=== PATIENT | male | born 1965 | race Caucasian/White ===

== ENCOUNTER 2023-12-21 11:59 | Outpatient (CLI) | payer OTHER ==
[2023-12-21 13:40] LABS: Hematocrit 38.8 % (38.8-50.0); Hemoglobin 14.1 g/dL (13.5-17.5); Mean Corpuscular HGB CONC 36.3 g/dL (32.0-36.0); Mean Corpuscular Hemoglobin 32.8 pg (27.0-33.0); Mean Corpuscular Volume 90.2 fL (81.2-95.1); Mean Platelet Volume 9.6 fL (7.4-10.4); Platelet Count 187 10x3/uL (150-450); RBC Distribution Width 12.7 % (11.5-14.5); White Blood Cell (WBC) Count 5.2 10x3/uL (3.5-10.5)
[2023-12-21 14:26] LABS: Anion Gap 16 mmol/L (10-20); BUN (Urea Nitrogen) 18 mg/dL (8.4-25.7); Calc. Creatinine Clearance 0 mL/min (70-130); Calcium 9.9 mg/dL (7.8-10.44); Carbon Dioxide 23 mmol/L (22-29); Chloride 101 mmol/L (98-107); Estimated GFR 93; Glucose 161 mg/dL (70-105); Potassium 4.3 mmol/L (3.5-5.1); Sodium 136 mmol/L (136-145)
== END 2023-12-21 12:00 | disposition home or self-care (01) ==
LOC: LABBT 11:59
PROVIDERS: ATTEND Neurological Surgery
DX: Z01.818 Encounter for other preprocedural examination (principal); M54.16 Radiculopathy, lumbar region
CPT/HCPCS: 80048; 85027; 93005; 93010

== ENCOUNTER 2023-12-25 06:08 | Day surgery (SDC) | payer OTHER ==
[2023-12-21 12:51] VITALS: BMI 27.3
[2023-12-25] MEDS ORDERED: Sodium Chloride 0.9% 100 ML ONE ×2 (07:14→13:27)
[2023-12-25] MEDS ORDERED: CEFAZOLIN 2 GM VIAL ONE ×2 (07:14→13:27)
[2023-12-25] MEDS ORDERED: Rocuronium Bromide 10 MG/ML (10ML VIAL) ONE (08:01)
[2023-12-25] MEDS ORDERED: fentaNYL PF 100 MCG/2 ML SYRINGE ONE ×2 (08:01→11:13)
[2023-12-25] MEDS ORDERED: PROPOFOL 20 ML ONE (08:01)
[2023-12-25] MEDS ORDERED: Lidocaine 1% PF 5 ML VIAL ONE (08:01)
[2023-12-25] MEDS ORDERED: Bupivacaine PF 0.5% 30 ML VIAL ONE (08:46)
[2023-12-25] MEDS ORDERED: EPINEPHrine 1 MG/ML VIAL ONE (08:46)
[2023-12-25] MEDS ORDERED: Thrombin 5000 UNITS/5 ML VIAL ONE (08:46)
[2023-12-25] MEDS ORDERED: Midazolam HCl 2 mg/2 ml Vial ONE (09:38)
[2023-12-25] MEDS ORDERED: Dexmedetomidine 200 MCG/2 ML VIAL ONE (09:41)
[2023-12-25] MEDS ORDERED: Ondansetron PF 4 MG/2 ML Vial ONE (11:11)
[2023-12-25] MEDS ORDERED: Ketorolac Tromethamine 30 MG (1 mL) VIAL ONE (11:11)
[2023-12-25] MEDS ORDERED: Dexamethasone 20 MG/5 ML VIAL ONE (11:11)
[2023-12-25] MEDS ORDERED: Glycopyrrolate 0.2 MG/ML 5 ML SYRINGE ONE (11:18)
[2023-12-25] MEDS ORDERED: NEOSTIGMINE 3 MG/3 ML SYRINGE ONE (11:18)
[2023-12-25] MEDS ORDERED: HYDROmorphone 2 MG/ML VIAL ONE (11:40)
[2023-12-25] MEDS ORDERED: fentaNYL 50 mcg/mL 1 mL Vial ONE (12:02)
[2023-12-25] MEDS ORDERED: HYDROmorphone 0.5 MG/0.5 ML SYRINGE ONE (12:06)
[2023-12-25] MEDS ORDERED: diphenhydrAMINE 50 MG/ML VIAL ONE (12:16)
[2023-12-25] MEDS ORDERED: HYDROcodone/Acetaminophen 5/325 mg Tablet ONE (13:03)
[2023-12-25] MEDS ORDERED: Tamsulosin HCl 0.4 MG CAP ONE (13:05)
== END 2023-12-25 14:10 | disposition home or self-care (01) ==
LOC: SDC 06:08
PROVIDERS: ATTEND Neurological Surgery
PROC: 01NB0ZZ Release Lumbar Nerve, Open Approach (ICD-10-PCS; principal; 2023-12-25)
DX: M51.16 Intervertebral disc disorders with radiculopathy, lumbar region (principal); E11.9 Type 2 diabetes mellitus without complications; E78.5 Hyperlipidemia, unspecified; I10 Essential (primary) hypertension; Z98.890 Other specified postprocedural states; Z79.84 Long term (current) use of oral hypoglycemic drugs; Z79.899 Other long term (current) drug therapy
CPT/HCPCS: J0171; J0665; J1100; J1170; J1200; J1885; J2250; J2405; J2704; J3010; J3490

== ENCOUNTER 2025-02-16 09:16 | Outpatient (CLI) | payer OTHER | END 2025-02-16 09:17 | disposition home or self-care (01) | LOC: BICRAD 09:16 | PROVIDERS: ATTEND Family Medicine | DX: M89.8X1 Other specified disorders of bone, shoulder (principal); R10.84 Generalized abdominal pain | CPT/HCPCS: 71046 ==